=== PATIENT | female | born 1990 | race African-American/Black ===

== ENCOUNTER 2017-03-03 10:16 | Emergency (ER) | payer OTHER ==
[~2017-03-03] VITALS: Ht 147.3 cm; Wt 62.0 kg
[2017-03-03] MEDS ORDERED: NAPROSYN500 MG PO (11:18)
[2017-03-03 11:32] VITALS: BP 112/68
== END 2017-03-03 11:34 | disposition home or self-care (01) | DRG 605 ==
LOC: ED 10:16
DX: S90.31XA Contusion of right foot, initial encounter (principal); W22.8XXA Striking against or struck by other objects, initial encounter; Y93.89 Activity, other specified; Y92.148 Other place in prison as the place of occurrence of the external cause